=== PATIENT | male | born 1980 ===

== ENCOUNTER 2017-09-25 20:02 | Emergency (ER) | payer BC ==
[2017-09-25 20:06] VITALS: BMI 34.1
[2017-09-25 20:12] VITALS: RESP 18; TEMP 99.1
--- NOTE | 2017-09-25 21:28 | ED PDOC ---
Arrival/HPI - General Chief Complaint: Abnormal Skin Integrity Time Seen by Provider: 09/25/17 21:24 Historian: Patient, Spouse - History of Present Illness Narrative History of Present Illness (Text): 09/25/17 21:27 36yr old female presents today with rash to palms and soles since yesterday. pt c/o pruritis and pain. c/o subjective fevers and sore throat. no sick contacts. pt states yesterday at work he spilled cement powder in his boots and thinks that he is allergic. denies cp or sob. no abdominal pain. no dizziness or weakness. no other complaints. Symptom Onset: Sudden Quality: Aching, Burning Severity Level: 7 Past Medical History - Provider Review Nursing Documentation Reviewed: Yes - Travel History Have you recently traveled outside [place] w/in the past 3 mons?: No - Infectious Disease Hx of Infectious Diseases: None - Endocrine/Metabolic Hx Diabetes Mellitus Type 2: Yes - Psychiatric Hx Substance Use: No - Surgical History Hx Tonsillectomy: Yes - Anesthesia Hx Anesthesia: Yes Hx Anesthesia Reactions: No Hx Malignant Hyperthermia: No Family/Social History - Physician Review Nursing Documentation Reviewed: Yes Family/Social History: Unknown Family HX Smoking Status: Never Smoked Hx Alcohol Use: No Hx Substance Use: No Allergies/Home Meds Allergies/Adverse Reactions: Allergies cement Allergy (Uncoded 09/25/17 20:06) RASH Home Medications: Home Meds Medication Instructions Recorded Confirmed Aspirin [Aspirin Chewable] 1 tab PO DAILY 09/25/17 09/25/17 Sitagliptin Phos/Metformin HCl 1 tab PO BID 09/25/17 09/25/17 [Janumet 50-1,000 mg Tablet] Review of Systems - Review of Systems Constitutional: Fevers. absent: Fatigue ENT: Sore Throat Respiratory: absent: SOB, Cough Cardiovascular: absent: Chest Pain, Palpitations Gastrointestinal: absent: Abdominal Pain, Nausea, Vomiting Musculoskeletal: Arthralgias Skin: Rash, Pruritis Neurological: absent: Headache, Dizziness Psychiatric: absent: Anxiety, Depression Physical Exam Vital Signs Reviewed: Yes Vital Signs Temp Pulse Resp BP Pulse Ox 09/25/17 20:10 99.1 F 113 H 18 142/88 98 Temperature: Afebrile Blood Pressure: Normal Pulse: Tachycardic Respiratory Rate: Normal Appearance: Positive for: Well-Appearing, Non-Toxic, Comfortable Pain Distress: None Mental Status: Positive for: Alert and Oriented X 3 - Systems Exam Head: Present: Atraumatic Mouth: Present: Moist Mucous Membranes Pharnyx: Present: ERYTHEMA, Other (there are erythematous vesicles noted to posterior pharynx.). No: EXUDATE, TONSILS ENLARGED, Peritonsilar Swelling, Uvular Deviation, Strider Nose (External): Present: Atraumatic Nose (Internal): Present: Normal Inspection Neck: Present: Normal Range of Motion Respiratory/Chest: Present: Clear to Auscultation Cardiovascular: Present: Regular Rate and Rhythm Abdomen: No: Tenderness Upper Extremity: Present: Tenderness, Other (there are multiple erythematous vesicles noted to palms). No: Swelling Lower Extremity: Present: Normal ROM, Tenderness, Capillary Refill < 2 s, Other (bilateral soles; + erythematous vesicles to soles. + tenderness) Neurological: Present: GCS=15, Speech Normal Skin: Present: Warm, Dry, Rashes, Normal Color Psychiatric: Present: Alert, Oriented x 3 Medical Decision Making ED Course and Treatment: 09/25/17 21:31 36-year-old male presents today with sore throat and rash to the palms and soles bilaterally since yesterday Fingerstick 197 Patient nontoxic well-appearing no distress. Patient with vesicular rash to palms or soles and posterior pharynx consistent with hdmz-mamt-mzc-mouth disease. Motrin and tramadol given for pain in the emergency room. Patient was advised to increase fluids, avoid contact. I discussed obyl-vebo-hhj -mouth disease with the patient and his . Advised follow-up with primary care physician within the next 2 days. Advised taking Motrin every 6 hours as needed for pain/fever reduction. I advised immediate return if symptoms worsen or persist or if concerning symptoms develop Patient verbalizes understanding of discharge instructions and need for immediate followup. all aspects of this case were discussed the attending of record. Impression: Uajq-tbon-ykx-mouth disease Motrin every 6 hours as needed for pain/fever reduction Increase fluids Follow-up with a primary care physician within the next 2 days Return immediately if symptoms worsen persist or if new concerning symptoms develop Disposition/Present on Arrival - Present on Arrival Any Indicators Present on Arrival: No History of DVT/PE: No History of Uncontrolled Diabetes: No Urinary Catheter: No History of Decub. Ulcer: No History Surgical Site Infection Following: None - Disposition Have Diagnosis and Disposition been Completed?: Yes Diagnosis: Hand, foot and mouth disease Disposition: HOME/ ROUTINE Disposition Time: 21:25 Patient Plan: Discharge Condition: GOOD Discharge Instructions (ExitCare): Hand, Foot, and Mouth Disease (ED) Additional Instructions: Motrin every 6 hours as needed for pain/fever reduction Increase fluids Follow-up with a primary care physician within the next 2 days Return immediately if symptoms worsen persist or if new concerning symptoms develop Referrals: Stephen Iqbal MD [Primary Care Provider] - Follow up with primary Manuela Dumont MD [Staff Provider] - Follow up with primary Forms: [facility] ([place]), WORK NOTE
[2017-09-25 21:45] VITALS: BP 140/80; PULSE 94; O2SAT 100
== END 2017-09-25 21:45 | disposition home or self-care (01) ==
LOC: ED 20:02
DX: B08.4 Enteroviral vesicular stomatitis with exanthem (principal)

== ENCOUNTER 2017-10-24 15:03 | Emergency (ER) | payer BC ==
[2017-10-24 15:03] VITALS: BMI 34.1
[2017-10-24 15:15] VITALS: TEMP 99.2
--- NOTE | 2017-10-24 15:29 | ED PDOC ---
Arrival/HPI - General Chief Complaint: Syncope Time Seen by Provider: 10/24/17 15:24 Historian: Patient - History of Present Illness Narrative History of Present Illness (Text): 10/24/17 15:28 A 37 year old male, whose past medical history includes diabetes, presents to the emergency department complaining of a syncopal episode prior to arrival. Patient reports while at work he began laughing and coughing for a long period of time causing him to pass out. According to co-workers patient was unconsciouses for approximately 5-7 seconds. Patient currently states he feels fine and denies any discomfort. Patient denies any fever, chills, nausea, vomiting, abdominal pain, chest pain, shortness of breath, headache, dizziness or any other complaints. Patient notes a cough for 2 weeks, states he has been taking DayQuil and NightQuil with improvement of symptom. Time/Duration: Prior to Arrival Symptom Course: Resolved Context: Work Past Medical History - Provider Review Nursing Documentation Reviewed: Yes - Infectious Disease Hx of Infectious Diseases: None - Cardiac Hx Cardiac Disorders: Yes - Pulmonary Hx Respiratory Disorders: No - Neurological Hx Neurological Disorder: No - HEENT Hx HEENT Disorder: No - Renal Hx Renal Disorder: No - Endocrine/Metabolic Hx Endocrine Disorders: Yes Hx Diabetes Mellitus Type 2: Yes - Hematological/Oncological Hx Blood Disorders: No - Integumentary Hx Dermatological Disorder: No - Musculoskeletal/Rheumatological Hx Musculoskeletal Disorders: No - Gastrointestinal Hx Gastrointestinal Disorders: No - Genitourinary/Gynecological Hx Genitourinary Disorders: No - Psychiatric Hx Psychophysiologic Disorder: No Hx Substance Use: No - Surgical History Hx Tonsillectomy: Yes - Anesthesia Hx Anesthesia: Yes Hx Anesthesia Reactions: No Hx Malignant Hyperthermia: No Family/Social History - Physician Review Nursing Documentation Reviewed: Yes Family/Social History: No Known Family HX Smoking Status: Never Smoked Hx Alcohol Use: No Hx Substance Use: No Allergies/Home Meds Allergies/Adverse Reactions: Allergies cement Allergy (Uncoded 10/24/17 15:06) RASH Home Medications: Home Meds Medication Instructions Recorded Confirmed Aspirin [Aspirin Chewable] 1 tab PO DAILY 09/25/17 10/24/17 Sitagliptin Phos/Metformin HCl 1 tab PO BID 09/25/17 10/24/17 [Janumet 50-1,000 mg Tablet] Review of Systems - Physician Review All systems were reviewed & negative as marked: Yes - Review of Systems Constitutional: absent: Fevers, Night Sweats Respiratory: Cough. absent: SOB Cardiovascular: Syncope. absent: Chest Pain Gastrointestinal: absent: Abdominal Pain, Nausea, Vomiting Neurological: absent: Headache, Dizziness Physical Exam Vital Signs Reviewed: Yes Vital Signs Temp Pulse Resp BP Pulse Ox 10/24/17 15:08 99.2 F 112 H 17 122/82 97 Temperature: Afebrile Blood Pressure: Normal Pulse: Tachycardic Respiratory Rate: Normal Appearance: Positive for: Well-Appearing, Non-Toxic, Comfortable Pain Distress: None Mental Status: Positive for: Alert and Oriented X 3 - Systems Exam Head: Present: Atraumatic, Normocephalic Pupils: Present: PERRL Extroacular Muscles: Present: EOMI Conjunctiva: Present: Normal Mouth: Present: Moist Mucous Membranes Neck: Present: Normal Range of Motion Respiratory/Chest: Present: Clear to Auscultation, Good Air Exchange. No: Respiratory Distress, Accessory Muscle Use Cardiovascular: Present: Regular Rate and Rhythm, Normal S1, S2. No: Murmurs Abdomen: Present: Normal Bowel Sounds. No: Tenderness, Distention, Peritoneal Signs Upper Extremity: Present: Normal Inspection. No: Cyanosis, Edema Lower Extremity: Present: Normal Inspection. No: Edema Neurological: Present: GCS=15, CN II-XII Intact, Speech Normal Skin: Present: Warm, Dry, Normal Color. No: Rashes Psychiatric: Present: Alert, Oriented x 3, Normal Insight, Normal Concentration Medical Decision Making ED Course and Treatment: 10/24/17 15:28 Impression: A 37 year old male presents for syncopal episode after laughing/coughing for a long period of time Plan: -- EKG -- Reassess and disposition Progress Notes: - EKG Interpretation Interpreted by ED Physician: Yes (sinus tach; otherwise normal) Type: 12 lead EKG - Scribe Statement The provider has reviewed the documentation as recorded by the Thiago Lombardo Provider Scribe Attestation: All medical record entries made by the Scribe were at my direction and personally dictated by me. I have reviewed the chart and agree that the record accurately reflects my personal performance of the history, physical exam, medical decision making, and the department course for this patient. I have also personally directed, reviewed, and agree with the discharge instructions and disposition. Disposition/Present on Arrival - Present on Arrival Any Indicators Present on Arrival: No History of DVT/PE: No History of Uncontrolled Diabetes: Yes Urinary Catheter: No History of Decub. Ulcer: No History Surgical Site Infection Following: None - Disposition Have Diagnosis and Disposition been Completed?: Yes Diagnosis: Syncope, tussive, Diabetes mellitus Disposition: HOME/ ROUTINE Disposition Time: 16:25 Patient Plan: Discharge Condition: IMPROVED Discharge Instructions (ExitCare): Syncope (ED) Forms: [email or web address] ([place])
[2017-10-24 16:46] VITALS: BP 135/82; PULSE 107; RESP 18; O2SAT 100
--- NOTE | 2017-10-24 19:28 | CARD ---
APPROVED REPORT EKG Measurement Heart [id number] <Conclusion> Sinus tachycardia Otherwise normal ECG
== END 2017-10-24 16:50 | disposition home or self-care (01) ==
LOC: ED 15:03
DX: E11.9 Type 2 diabetes mellitus without complications (principal); R05 Cough